=== PATIENT | male | born 1995 | race African-American/Black ===

== ENCOUNTER 2024-06-09 15:29 | Emergency (ER) | payer BC ==
[~2024-06-09] VITALS: Ht 180.3 cm; Wt 80.0 kg
[2024-06-09 15:54] VITALS: BP 124/86; PULSE 72; O2SAT 99
[2024-06-09 16:49] LABS: HEMATOCRIT 42.1 % (42.0-52.0); HEMOGLOBIN 14.4 g/dL (14.0-18.0); MEAN CORPUSCULAR HEMOGLOBIN 31.5 pg (28.0-32.0); MEAN CORPUSCULAR HGB CONC 34.1 g/dL (31.0-37.0); MEAN CORPUSCULAR VOLUME 92.3 fL (80.0-94.0); PLATELET 271 x1000/uL (130-400); RED BLOOD CELL COUNT 4.56 mill/uL (4.7-6.1); RED CELL DISTRIBUTION WIDTH 12.8 % (11.6-14.6)
[2024-06-09 17:00] LABS: CHLORIDE 101 mEq/L (98-107); POTASSIUM 3.9 mEq/L (3.5-5.1); SODIUM 135 mEq/L (136-145)
[2024-06-09 17:01] LABS: CALCIUM 9.8 mg/dL (8.7-10.4); CARBON DIOXIDE 26 mEq/L (21-32)
[2024-06-09 17:06] LABS: CREATININE 1.1 mg/dL (0.6-1.3); GLUCOSE 105 mg/dL (70-105); UREA NITROGEN BLOOD 7 mg/dL (9-23)
[2024-06-09 17:08] LABS: ALANINE AMINOTRANSFERASE 55 IU/L (10-49); ALBUMIN 4.4 g/dL (3.2-4.8); ASPARTATE AMINOTRANSFERASE 43 IU/L (<34); CREATINE KINASE 241 IU/L (46-171); PROTEIN TOTAL 7.7 g/dL (6.0-8.3)
[2024-06-09 17:09] LABS: BILIRUBIN TOTAL 1.1 mg/dL (0.1-1.0)
[2024-06-09 17:10] LABS: CLARITY URINE CLEAR (CLEAR); COLOR URINE YELLOW (YELLOW); GLUCOSE URINE NEGATIVE (NEGATIVE); KETONES URINE NEGATIVE (NEGATIVE); LEUKOCYTE ESTERASE URINE NEGATIVE (NEGATIVE); NITRITE URINE NEGATIVE (NEGATIVE); OCCULT BLOOD URINE TRACE (NEGATIVE); PH URINE 6.5 (4.5-8.0); PROTEIN URINE NEGATIVE (NEGATIVE); SPECIFIC GRAVITY URINE 1.004 (1.005-1.030); UROBILINOGEN URINE 0.2 E.U./dL (0.2-1.0)
[2024-06-09] MEDS: CEFTRIAXONE SODIUM 1G VIAL IM ONE (17:15)
[2024-06-09 18:00] VITALS: RESP 16
[2024-06-09 18:16] LABS: BACTERIA URINE TRACE; RBC URINE 0-2 /hpf (0-2); SQUAMOUS EPITHELIAL CELL URINE RARE /lpf (RARE/1+); WBC URINE 0-2 /hpf (0-2)
== END 2024-06-09 18:03 | disposition left against medical advice (07) ==
LOC: ER 15:29
DX: R53.1 Weakness (principal)
CPT/HCPCS: 99283; 80053; 81003; 82550; 85027; 36415; J0696